=== PATIENT | male | born 1960 | race African-American/Black ===

== ENCOUNTER 2019-11-23 09:24 | Day surgery (SDC) | payer OTHER ==
[2019-11-16 09:26] LABS: ABSOLUTE EOSINOPHILS # (AUTO) 0.2 10^3/uL (0.0-0.6); ABSOLUTE LYMPHOCYTES (AUTO) 1.9 10^3/uL (0.5-4.7); ABSOLUTE MONOCYTES (AUTO) 0.3 10^3/uL (0.1-1.4); ABSOLUTE NEUT (AUTO) 2.3 10^3/uL (1.7-8.2); BASOPHILS % (AUTO) 0.6 % (0-2); EOSINOPHILS % (AUTO) 3.3 % (0-6); HEMATOCRIT 43.7 % (37.9-51.0); LYMPHOCYTES % (AUTO) 39.7 % (13-45); MEAN CORPUSCULAR HEMOGLOBIN 31.4 pg (27.0-33.4); MEAN CORPUSCULAR HGB CONC 34.3 g/dL (32.0-36.0); MEAN CORPUSCULAR VOLUME 92 fl (80-97); MONOCYTES % (AUTO) 6.6 % (3-13); PLATELET COUNT 328 10^3/uL (150-450); RED BLOOD COUNT 4.78 10^6/uL (4.35-5.55); RED CELL DISTRIBUTION WIDTH 13.1 % (11.5-14.0); SEGMENTED NEUTROPHILS % (AUTO) 49.8 % (42-78); TOTAL CELLS COUNTED % (AUTO) 100 %; WHITE BLOOD COUNT 4.7 10^3/uL (4.0-10.5)
[2019-11-16 09:57] LABS: ANION GAP 11 (5-19); BLOOD UREA NITROGEN 17 mg/dL (7-20); CALCIUM 9.8 mg/dL (8.4-10.2); CARBON DIOXIDE 29 mmol/L (22-30); CHLORIDE 101 mmol/L (98-107); GLUCOSE 110 mg/dL (75-110); POTASSIUM 4.1 mmol/L (3.6-5.0)
--- NOTE | 2019-11-16 10:13 | EKG REPORT ---
SEVERITY:- BORDERLINE ECG - SINUS RHYTHM EARLY PRECORDIAL TRANSITION, CONSIDER OLD POST NC, CLINICAL CORRELATION NEEDED. : Confirmed by: Tayo Cartagena MD 16-Nov-2019 10:12:48
[~2019-11-23 09:24] MED LIST: CEFAZOLIN SODIUM 2 GM in DEXTROSE 5%-WATER 100 ML IV PRN; LACTATED RINGERS 1000 ML IV PRN
[2019-11-23] MEDS ORDERED: PROPOFOL 0 MG/0 ML INFUS..BTL IV ONE (10:52)
[2019-11-23] MEDS ORDERED: FENTANYL CITRATE INJ/PF 250 MCG/5 ML AMPULE ONE (10:52)
[2019-11-23] MEDS ORDERED: MIDAZOLAM 2 MG/2 ML INJ ONE (10:52)
[2019-11-23] MEDS ORDERED: PROPOFOL INJ 200 MG/20 ML VIAL IV ONE (10:53)
[2019-11-23] MEDS ORDERED: BACITRACIN INJ 50,000 UNIT VIAL ONE (11:06)
[2019-11-23] MEDS ORDERED: BUPIVACAINE HCL 0.5 % INJ/PF 30 ML SDV ONE (11:06)
[2019-11-23] MEDS ORDERED: DIPHENHYDRAMINE HCL 50 MG/ML VIAL IV PRN (12:57)
[2019-11-23] MEDS ORDERED: PROMETHAZINE HCL INJ 25 MG/1 ML VIAL IV PRN ×2 (12:57)
[2019-11-23] MEDS ORDERED: OXYCODONE-ACETAMINOPHEN 5-325 MG TABLET PO PRN ×3 (12:57→14:09)
[2019-11-23] MEDS ORDERED: MEPERIDINE HCL/PF INJ 25 MG/1 ML DISP.SYRIN IV PRN (12:57)
[2019-11-23] MEDS ORDERED: FENTANYL CITRATE INJ/PF 100 MCG/2 ML AMPUL IV PRN ×2 (12:57)
[2019-11-23] MEDS ORDERED: HYDROMORPHONE HCL INJ/PF 2 MG/ML AMPULE IV PRN (14:09)
--- NOTE | 2019-11-23 14:15 | Operative Report ---
Operative Report DATE OF SURGERY: 11/23/19 PREOPERATIVE DIAGNOSIS: Left triceps tendon partial tear with calcific tendinos is traction apophysitis POSTOPERATIVE DIAGNOSIS: Same OPERATION: Debridement distal triceps with triceps tendon repair left elbow SURGEON: BULMARO CURTIS COMPLICATIONS: None ESTIMATED BLOOD LOSS: Minimal PROCEDURE: Indication for above procedure: 59-year-old male with longstanding history of left elbow discomfort. Has previous history of triceps tendon rupture and subsequently began having pain in his left triceps. Radiographs demonstrated calcification on the insertion of the triceps tendon attempted conservative measures without resolution of his symptoms. MRI was then performed demonstrating distal biceps tendinopathy with partial tear at the insertion. We discussed treatment options including operative versus nonoperative intervention patient continued to have discomfort in that point decision was made to proceed with operative treatment. Risk and benefits were explained patient verbalized understanding consented for surgical procedure. Procedure In Detail: Patient was seen and evaluated in the preoperative holding area. The LEFT upper extremity was initialized and marked. Patient received 2g of Ancef IV for bacterial prophylaxis. Patient was taken back to the operative room where transferred to the operative table and placed under general anesthesia. Once they were adequately anesthetized patient placed in the lateral position on a beanbag. Cervical spine was placed in neutral position all bony prominences w ere padded including nonoperative upper extremity and bilateral lower extremity. A surgical team debriefing was performed ensuring all instrumentation was available, the surgical procedure was discussed with possible concerns reviewed. The upper extremity was prepped with ChloraPrep draped in a sterile fashion. A timeout was done identifying correct patient, procedure and extremity everyone in attendance agree with this and verbalized no concerns. Left upper extremity was exsanguinated and tourniquet was inflated to 250 mmHg. Longitudinal skin incision was made along the triceps extending distally along the proximal olecranon. Blunt dissection was performed. A peripheral veins were coagulated with bipolar cautery. Ulnar nerve was palpated within the cubital tunnel and protected but not released. There was significant calcification of the triceps at its insertion point within the olecranon consistent with traction apophysitis. The calcification and degenerative tendon was sharply debrided from the triceps. The medial and lateral aspect of the triceps remained intact however the central 50% demonstrated disruption after debridement. Nonviable tendon and soft tissue was sent for analysis to pathology. Olecranon spur was then identified and sharply excised. Bone edges were debrided with a rasp until a nice smooth surface was obtained. C arm fluoroscopy was obtained confirming excision of the olecranon spur and calcified nonviable tendon tissue. Wound was then copiously irrigated with normal saline. A U-shaped defect was noted after debridement the medial and lateral aspects were reapproximated with 0 Vicryl suture. The proximal olecranon was debrided down to cancellus bone to promote bone healing. I then proceeded with repair of the remaining triceps tendon. 2 swivel lock anchors were placed to act as a proximal row under C arm fluoroscopy to ensure no encroachment within the articular surface. The screw lock anchors were loaded with fiber tape and horizontal mattress was placed evenly throughout the triceps tendon. 2 additional oversize load pilot escort holes were made distally under C arm fluoroscopy to allow for double row repair and compression of the remanent triceps tendon at its insertion within the olecranon. 1 suture from laterally and 1 suture for medially were then placed in each swivel lock anchor independently providing compression of the triceps back to its anatomic insertion. Completion demonstrated full elbow range of motion with adequate tension. C-arm was obtained confirming adequate placement of all the anchors. Wound was copiously irrigated with normal saline. Tourniquet was deflated any peripheral bleeding was controlled with cautery. Subcutaneous tissues were closed with interrupted 3-0 Monocryl suture. Skin was closed with running subcuticular 4-0 Monocryl reinforced with Dermabond and Steri-Strips. Patient was placed in a posterior splint with the elbow at 60 degrees of flexion. Sponge counts, instrument counts, needle counts were correct. Patient was then awoken from anesthesia. Transferred from the operating room table to the operating room stretcher. There was no intraoperative complications patient kevin erated procedure well stable to PACU. Postop plan: Patient follow in the office in 2 weeks. In the meantime patient will transition to hinged elbow brace locked at 60 degrees of flexion. Patient will begin active range of motion 2-6 weeks postoperatively increasing flexion 15 degrees/week to obtain near full active range of motion 6 weeks postoperatively. Would not begin passive range of motion of the elbow until 6 weeks postoperatively.
--- NOTE | 2019-11-23 14:15 | Discharge Summary ---
Discharge Summary (SDC) - Discharge Final Diagnosis: Left partial triceps tendon rupture Date of Surgery: 11/23/19 Discharge Date: 11/23/19 Condition: Good Treatment or Instructions: Schedule Follow Up w/ Dr. Severo Harris @ [facility] to be seen in 10-14 days or as scheduled [place]: [place]: [place]: Ice and elevate Keep splint clean/dry/intact, May remove on postop day #[address] elbow and hinged elbow brace locked at 60 degrees If your fingers become numb please unwrap the Billy wrap but leave the splint in place, if the sensation does not return within 30 minutes please return to the emergency department. May begin finger range of motion attempting to make full fist. You may also use acetaminophen (Tylenol) 1000 mg every 4-6 hours as needed for pain or fever. Please be aware that many medications contain acetaminophen, do not exceed a total of 1000 mg of acetaminophen every 6 hours. If ibuprofen and acetaminophen are not sufficient for your pain you may take the Percocet/[place]. Please be aware that the Percocet/[place] does contain Tylenol. Stool softener of choice when on pain medication. ORAL NARCOTIC MEDICATION: You have been given a prescription for pain control. This medication is a narcotic. It's best taken with food, as nausea can result if taken on an empty stomach. Don't operate machinery or drive within six hours of taking this medication. Do not combine this medicine with alcohol, or with any medication which can cause sedation (such as cold tablets or sleeping pills) unless you get permission from the physician. Narcotics tend to cause constipation. If possible, drink plenty of fluids and eat a diet high in fiber and fruits. Please be aware that prescription narcotics also have the potential for abuse. People become addicted to these medications because of the general sense of wellbeing that they induce. This feeling along with a significant reduction in tension, anxiety, and aggression provides a stimulating seductive quality to these drugs. Once your pain is under control, we encourage you to discard your unused narcotics. Prescriptions: Oxycodone HCl/Acetaminophen [Percocet 7.5-325 mg Tablet] 1 tab PO Q6 PRN #25 tab PRN Reason: Referrals: CAROLYN GAYLE [Primary Care Provider] - Respiratory Treatments at Home: Deep Breathing/Coughing Discharge Activity: No Lifting Over 10 Pounds, No Lifting/Push/Pulling Report the Following to Your Physician Immediately: Fever over 101 Degrees, Unusual Bleeding, Redness, Swelling, Warmth, Increased Soreness
[2019-11-23] MEDS ORDERED: FENTANYL CITRATE INJ/PF 100 MCG/2 ML AMPUL ONE (14:28)
[2019-11-23] MEDS: FENTANYL CITRATE INJ/PF 100 MCG/2 ML AMPUL IV PRN ×2 (14:30→14:40)
[2019-11-23] MEDS ORDERED: NEOSTIGMINE METHYLSULFATE 10 MG/10 ML VIAL ONE (14:40)
[2019-11-23] MEDS ORDERED: DEXAMETHASONE SOD PHOSPHATE INJ 4 MG/1 ML VIAL ONE (14:40)
[2019-11-23] MEDS ORDERED: ROCURONIUM BROMIDE INJ 50 MG/5 ML VIAL IV ONE (14:40)
[2019-11-23] MEDS ORDERED: GLYCOPYRROLATE 1 MG/5 ML VIAL ONE (14:40)
[2019-11-23] MEDS ORDERED: SUCCINYLCHOLINE CHLORIDE INJ 200 MG/10 ML VIAL ONE (14:40)
[2019-11-23] MEDS ORDERED: ONDANSETRON HCL INJ/PF 4 MG/2 ML SDV ONE (14:40)
[2019-11-23] MEDS ORDERED: OXYCODONE-ACETAMINOPHEN 5-325 MG TABLET ONE (14:57)
--- NOTE | 2019-11-23 15:33 | RADIOLOGY REPORT (SQ) ---
EXAM DESCRIPTION: NO CHG FLUORO; ELBOW LEFT AP/LATERAL COMPLETED DATE/TIME: 11/23/2019 2:33 pm REASON FOR STUDY: LEFT ELBOW TENDON REPAIR ASST WITH FLUORO IN OR COMPARISON: None. FLUOROSCOPY TIME: 0.5 minutes 3 Images saved to PACS LIMITATIONS: None. PROCEDURE: Fluoro assisted tendon repair of the left elbow. FINDINGS: Images from fluoro document the procedure. IMPRESSION: Tendon repair. Refer to operative note for further information. COMMENT: PQRS 6045F: Fluoroscopy time of the procedure is documented in the report. TECHNICAL DOCUMENTATION: JOB ID: [id number] 2010 [employer]- All Rights Reserved Reading location - IP/workstation name: [email or web address]
--- NOTE | 2019-11-23 15:33 | RADIOLOGY REPORT (SQ) ---
EXAM DESCRIPTION: NO CHG FLUORO; ELBOW LEFT AP/LATERAL COMPLETED DATE/TIME: 11/23/2019 2:33 pm REASON FOR STUDY: LEFT ELBOW TENDON REPAIR ASST WITH FLUORO IN OR COMPARISON: None. FLUOROSCOPY TIME: 0.5 minutes 3 Images saved to PACS LIMITATIONS: None. PROCEDURE: Fluoro assisted tendon repair of the left elbow. FINDINGS: Images from fluoro document the procedure. IMPRESSION: Tendon repair. Refer to operative note for further information. COMMENT: PQRS 6045F: Fluoroscopy time of the procedure is documented in the report. TECHNICAL DOCUMENTATION: JOB ID: [id number] 2010 [employer]- All Rights Reserved Reading location - IP/workstation name: [email or web address]
[2019-11-23] MEDS ORDERED: HYDROMORPHONE HCL INJ/PF 2 MG/ML AMPULE ONE (15:57)
[2019-11-23 17:38] VITALS: BP 122/79
== END 2019-11-23 17:05 | disposition home or self-care (01) ==
LOC: OROUT 09:24
PROVIDERS: ATTEND Orthopaedic Surgery
DX: M62.1 Other rupture of muscle (nontraumatic) (principal); M65.222 Calcific tendinitis, left upper arm; M62.89 Other specified disorders of muscle; M25.522 Pain in left elbow; I10 Essential (primary) hypertension; K21.9 Gastro-esophageal reflux disease without esophagitis
CPT/HCPCS: 93005; 36415; 85025; 80048; 88305 ×2; 88311; 73070; 93010; 01710; 24341; 11044; J2250; J3490 ×3; J0690; J1100; J3010 ×2; J2710; J1170; J0330; J2405; J7060; J2704

== ENCOUNTER 2019-11-30 08:46 | Emergency (ER) | payer OTHER ==
--- NOTE | 2019-11-30 09:50 | ER Document Report ---
ED General - General Chief Complaint: Post Surgical Pain Stated Complaint: POST SURGICAL PAIN Time Seen by Provider: 11/30/19 09:10 Primary Care Provider: ADELSO HASTINGS MD [Primary Care Provider] - Follow up as needed Mode of Arrival: Ambulatory Information source: Patient TRAVEL OUTSIDE OF THE [place] IN LAST 30 DAYS: No - HPI Notes: Patient presents with left arm pain. He has had this for approximately 1 week since she had a surgery on 23 November[address] The surgeon [address] Dr[address] Curtis. He states he had a tricep repair. He says that he has had increasing pain mainly in the left forearm since the surgery. He states he tried to readdressed the splint himself but continues to have pain. He says he called the office this morning and he was referred to the emergency department. This pain is constant. It is moderate to severe. It radiates up his left arm. It is a throbbing sensation. He denies any numbness or tingling. - Related Data Allergies/Adverse Reactions: baclofen Allergy (Verified 11/16/19 15:57) Home Medications: Percocet. amlodipine Past Medical History - General Information source: Patient - Social History Smoking Status: Never Smoker Frequency of alcohol use: None Drug Abuse: None Family History: Reviewed & Not Pertinent Patient has suicidal ideation: No Patient has homicidal ideation: No - Past Medical History Cardiac Medical History: Denies: Hx Coronary Artery Disease, Hx Heart Attack, Hx Hypertension Pulmonary Medical History: Denies: Hx Asthma, Hx Bronchitis, Hx COPD, Hx Pneumonia Neurological Medical History: Denies: Hx Cerebrovascular Accident, Hx Seizures Musculoskeletal Medical History: Denies Hx Arthritis - Immunizations Hx Diphtheria, Pertussis, Tetanus Vaccination: Yes Review of Systems - Review of Systems Constitutional: denies: Chills, Fever Cardiovascular: denies: Chest pain, Palpitations Respiratory: denies: Cough, Short of breath -: Yes All other systems reviewed and negative Physical Exam - Vital signs Vitals: Temp Pulse Resp BP Pulse Ox 98.1 F 91 16 159/79 H 99 11/30/19 08:49 11/30/19 08:49 11/30/19 08:49 11/30/19 08:49 11/30/19 08:49 Interpretation: Hypertensive - General General appearance: Appears well, Alert - HEENT Head: Normocephalic, Atraumatic Eyes: Normal Pupils: PERRL - Respiratory Respiratory status: No respiratory distress Chest status: Nontender Breath sounds: Normal Chest palpation: Normal - Cardiovascular Rhythm: Regular Heart sounds: Normal auscultation Murmur: No - Abdominal Inspection: Normal Distension: No distension Bowel sounds: Normal Tenderness: Nontender Organomegaly: No organomegaly - Back Back: Normal, Nontender - Extremities General upper extremity: Nontender, Other - The left arm has a surgical wound to the posterior elbow. There is no drainage from the site. It appears to be healing normally. There is some mild erythema and increased temperature but it is not tender to palpation and there is no fluctuance. He does have swelling down to the mid forearm where the splint stops. After removal of the splint he states that his arm feels much better. He has a great radial pulse in the left arm. He has good and normal capillary refill in all fingers of the left hand. He has no sensory changes to the left hand or fingers. He has no significant pitting edema of the upper or lower left arm. The upper and lower left arm are not tight and there are no signs of compartment syndrome. The entire left arm was palpated and there is no significant tenderness. General lower extremity: Normal inspection, Nontender, Normal color, Normal ROM, Normal temperature, Normal weight bearing. No: Sergey's sign - Neurological Neuro grossly intact: Yes Cognition: Normal Orientation: AAOx4 [place] Coma Scale Eye Opening: Spontaneous [place] Coma Scale Verbal: Oriented [place] Coma Scale Motor: Obeys Commands [place] Coma Scale Total: 15 Speech: Normal Motor strength normal: LUE, RUE, LLE, RLE Sensory: Normal - Psychological Associated symptoms: Normal affect, Normal mood - Skin Skin Temperature: Warm Skin Moisture: Dry Skin Color: Normal Course - Re-evaluation Re-evalutation: 11/30/19 10:35 Patient was seen in the emergency department by Dr. Curtis. - Vital Signs Vital signs: Temp Pulse Resp BP Pulse Ox 98.1 F 91 16 159/79 H 99 11/30/19 08:49 11/30/19 08:49 11/30/19 08:49 11/30/19 08:49 11/30/19 08:49 Discharge - Discharge Clinical Impression: Left arm pain Condition: Stable Disposition: HOME, SELF-CARE Additional Instructions: Follow-up with Dr. Curtis as instructed Referrals: BULMARO CURTIS, DO [ACTIVE STAFF] - Follow up as needed
--- NOTE | 2019-11-30 10:44 | PDOC PROGRESS REPORT ---
Subjective Progress Note for:: 11/30/19 Subjective:: Patient presented emergency room because of irritation due to postoperative splint. Patient states that since the splint was removed he states the pain notably improved. His swelling and pain have also improved since surgery. No longer taking Percocet. Taking Tylenol as needed for pain. Denies numbness or tingling. Reason For Visit: POST SURGICAL PAIN Physical Exam Vital Signs: Temp Pulse Resp BP Pulse Ox 98.1 F 91 16 159/79 H 99 11/30/19 08:49 11/30/19 08:49 11/30/19 08:49 11/30/19 08:49 11/30/19 08:49 Intake & Output 11/29/19 11/30/19 12/01/19 06:59 06:59 06:59 Weight 96 kg Musculoskeletal exam: PRESENT: other - Left upper extremity: Surgical incision well approximated no erythema or drainage. Moderate swelling of the elbow and hand. No sensory deficits. Patient able to make full composite fist. Full active extension of the IP/MP joints. EPL/FPL intact. Two-point discrimination 5 mm median ulnar nerve distribution. Assessment & Plan - Diagnosis (1) Tendinitis of left triceps Is this a current diagnosis for this admission?: Yes Plan: Patient 7 days status post left triceps debridement with repair. Patient is doing well. At this point he may transition from the splint into a hinged elbow brace. He will begin occupational therapy as per triceps repair protocol and postoperative protocol. Patient may follow-up in the office in 4 weeks for recheck. We will cancel his appointment on Friday however if he has any questions or concerns he should contact our office. - Time Time Spent with patient: 15-24 minutes
[2019-11-30 10:55] VITALS: BP 135/97
== END 2019-11-30 10:57 | disposition home or self-care (01) ==
LOC: ER 08:46
PROC: 2W39X1Z Immobilization of Left Upper Extremity using Splint (ICD-10-PCS; principal; 2019-11-30)
DX: M77.8 Other enthesopathies, not elsewhere classified (principal); M79.602 Pain in left arm; G89.18 Other acute postprocedural pain; Z98.890 Other specified postprocedural states; Z88.8 Allergy status to other drugs, medicaments and biological substances
CPT/HCPCS: 99283